=== PATIENT | female | born 1935 | race Caucasian/White ===

== ENCOUNTER 2016-06-22 17:39 | Inpatient (IN) | payer OTHER ==
[~2016-06-22] VITALS: Ht 157.5 cm; Wt 46.3 kg
--- NOTE | ~2016-06-22 | DSS ---
[facility] [place] [address] SHORT STAY SUMMARY Name: ERIN GUEVARA Room #: 412-P [facility] IN M.R.#: [id number] Admission: 06/23/16 Attend Phys: Iris Alva Discharge: 06/23/16 Date of : 39 Report #: [id number] THIS REPORT FOR: //name// CC: Jack Curran DATE OF SERVICE: 06/23/2016 HISTORY OF PRESENT ILLNESS: The patient was being admitted electively by Dr. Curran for evaluation of confusion. I met the patient in the room. After discussing her situation within 5 minutes, she left against medical advice. She was neither formally admitted to the hospital for evaluation. <ELECTRONICALLY SIGNED> By: Bowen Hill MD 06/29/16 [id number] Bowen Hill MD /nt
[2016-06-23] MEDS ORDERED: NORVASC2.5 MG PO (12:08)
[2016-06-23] MEDS ORDERED: LEVOTHYROXIN0.075 MG PO (12:09)
[2016-06-23] MEDS ORDERED: ZANTAC 150MG T150 MG PO ×2 (12:10→12:11)
[2016-06-23] MEDS ORDERED: VALIUM2 MG PO (12:12)
[2016-06-23] MEDS ORDERED: NITROGLYCERIN0.4 MG SUBLING (12:13)
[2016-06-23] MEDS ORDERED: GAS-X180 MG PO (12:25)
[2016-06-23] MEDS ORDERED: PHAZYME250 MG PO (12:26)
== END 2016-06-23 13:40 | disposition left against medical advice (07) | DRG 948 ==
LOC: 5S 17:39 → 4N 06-23 11:15
DX: R41.0 Disorientation, unspecified (principal); Z53.21 Procedure and treatment not carried out due to patient leaving prior to being seen by health care provider
CPT/HCPCS: 10790

== ENCOUNTER 2017-12-12 14:25 | Inpatient (IN) | payer OTHER ==
[~2017-12-12] VITALS: Ht 157.5 cm; Wt 47.8 kg
--- NOTE | ~2017-12-12 | D ---
[facility] [place] [address] DISCHARGE SUMMARY Name: ERIN GUEVARA Room #: 419-P [facility] IN M.R.#: [id number] Admission: 12/12/17 Attend Phys: Iris Alva Discharge: 12/13/17 Date of : 39 Report #: [id number] THIS REPORT FOR: //name// CC: Jack Curran DATE OF SERVICE: 12/13/2017 FINAL DIAGNOSES: 1. Chronic abdominal pain. 2. Chronic anxiety. HOSPITAL COURSE: The patient was admitted electively for evaluation of abdominal pain. She had previously undergone extensive workup both at [facility] and [facility] for GI symptoms without pertinent findings. Our GI service assessed her. There was also concern of some underlying anxiety or mental health issues contributing to her that were posing problems with her functional level on a day-to-day basis. Dr. Polo was able to assess her and recommended Remeron at bedtime. Unfortunately, before full treatment plan could be put together for her, she left against medical advice. <ELECTRONICALLY SIGNED> By: Bowen Hill MD 12/15/17 0906 [id number] Bowen Hill MD /nt
--- NOTE | ~2017-12-12 | H ---
[facility] [place] [address] HISTORY AND PHYSICAL Name: ERIN GUEVARA Room #: 419-P ADM IN M.R.#: [id number] Admission: 12/12/17 Attend Phys: Iris Alva Discharge: Date of : 39 Report #: [id number] THIS REPORT FOR: //name// CC: Jack Curran DATE OF SERVICE: 12/12/2017 CHIEF COMPLAINT: Abdominal pain. HISTORY OF PRESENT ILLNESS: The patient is an 82-year-old female who was admitted from the office for evaluation of persistent abdominal pain. She complains of a fall and burning pain in her mid upper abdomen, generally associated with food intake. She reports a very strict diet that is limited to certain food groups and she avoids many things because she says these foods precipitate the pain, specifically any spicy type foods or sounds to be dairy products give her significant difficulty. She describes sort of a burning sensation in the esophagus and epigastric area with a full or bloated type feeling and crampy pain. She also describes symptoms of constipation. She reports a 40-pound weight loss in the last 8 years, but really cannot specify how much she may have lost in this calendar year. Through the office notes in the last month or 2, it appears she is down 3 or 4 pounds. She is very anxious at times and developed some type of panic attacks where she often will present to the Emergency Room or seek medical treatment. After discussing with Dr. Curran and reviewing the office notes, it appears she has presented to the Emergency Room either at [facility] or [facility] almost on a daily basis for the last several months. The office has received records from ER trips on multiple occasions many days in a row. She has been hospitalized, I believe in both facilities and she describes extensive GI workup including EGD, gastric emptying time and what sounds to be a CT. She says no definitive diagnosis has been made. I am attempting to gather some of those records from the office. PAST MEDICAL HISTORY: Hypertension, she treats only for readings above 150; hypothyroidism; chronic abdominal pain; chronic anxiety. She has had several brief admissions here where she left AMA before receiving care or evaluation. PAST SURGICAL HISTORY: Unknown. FAMILY HISTORY: Noncontributory. SOCIAL HISTORY: She lives alone, but has family friends. Denies chronic alcohol or tobacco use. ALLERGIES: Multiple, see list. [facility] [address] [place] [address] HISTORY AND PHYSICAL Name: ERIN GUEVARA Room #: 419-P [facility] IN M.R.#: [id number] Admission: 12/12/17 Attend Phys: Iris Alva Discharge: Date of : 39 Report #: [id number] MEDICATIONS: Amlodipine for systolic above 150, Zantac 4 times a day, Valium 1 mg twice a day. REVIEW OF SYSTEMS: Other than the abdominal symptoms, she complains of neck pain, anxiety and panic attacks. No chest pain, shortness of breath, nausea, vomiting, diarrhea, dysuria, myalgias, syncope or fall. PHYSICAL EXAMINATION: VITAL SIGNS: Temperature 34.9, pulse 58, respiration 19, blood pressure 147/91, O2 sat 100% on room air. GENERAL: She is awake and alert, in no distress. HEAD AND NECK: Unremarkable. LUNGS: Clear. HEART: Regular. ABDOMEN: Soft, normoactive bowel sounds, no palpable masses. No rebound or guarding. EXTREMITIES: No cyanosis, clubbing or edema. NEUROLOGIC: Cranial nerves intact. Speech is fluent. Motor strength intact. PSYCHIATRIC: She is calm and alert. She seems to focus on certain foods that give her GI issues and her use of Zantac and Valium to control her symptoms. ASSESSMENT: 1. Chronic abdominal pain. 2. Chronic anxiety. 3. Unexplained weight loss. PLAN: Basic lab and x-ray will be obtained. At this point, I have asked the office to forward any records involving GI studies to be sent to the hospital, so we can review along with the GI service before involving any further invasive studies. She also needs a psychiatric evaluation to see if any of her anxiety is feeding into her physical complaints or could there be an underlying mental illness that has not been fully diagnosed or treated at this point that may be contributing to her anxiety, behavior and physical symptoms. Based on what studies may or may not have been done in the past, a consideration could be given to a trial of Lactaid or even pancreatic enzyme I suppose or consideration of CT angiogram of the abdomen to rule out any ischemic issue, although her symptoms do not totally fit that picture at this point. I will await further records and assessment in the coming day. <ELECTRONICALLY SIGNED> By: Bowen Hill MD 12/13/17 [id number] Bowen Hill MD /nt
[~2017-12-12 14:25] MED LIST: GAS-X180 MG PO; LEVOTHYROXIN0.075 MG PO; NITROGLYCERIN0.4 MG SUBLING; NORVASC2.5 MG PO; PHAZYME250 MG PO; VALIUM2 MG PO; ZANTAC 150MG T150 MG PO
[2017-12-12 15:33] VITALS: BP 147/91
[2017-12-12 16:55] LABS: HEMATOCRIT 40.6 % (37.0-47.0); HEMOGLOBIN 14.2 gm/dL (12.0-15.0); MCH 32.1 pg (26.0-34.0); MCV 91.6 fL (80.0-100.0); RBC 4.43 mil/uL (4.20-5.00); WBC 5.3 thou/uL (4.0-11.0)
[2017-12-12 17:08] LABS: ALBUMIN 3.6 g/dL (3.4-5.0); CALCIUM 8.9 mg/dL (8.5-10.1); TOTAL BILIRUBIN 0.6 mg/dL (<0.1-1.0); TOTAL PROTEIN 7.2 g/dL (6.4-8.2)
[2017-12-12 20:32] VITALS: BP 158/92
[2017-12-13 01:33] LABS: URINE BILIRUBIN NEGATIVE (Negative); URINE BLOOD TRACE (Negative); URINE CLARITY CLEAR; URINE COLOR YELLOW; URINE GLUCOSE-RANDOM* NEGATIVE (Negative); URINE KETONES NEGATIVE (Negative); URINE LEUKOCYTES-REFLEX NEGATIVE (Negative); URINE NITRITE-REFLEX NEGATIVE (Negative); URINE PROTEIN (DIPSTICK) NEGATIVE (Negative); URINE SPECIFIC GRAVITY <= 1.005 (1.005-1.035); URINE UROBILINOGEN 0.2 E.U./dl (0.2-1.0)
[2017-12-13 04:01] VITALS: BP 144/78
[2017-12-13 06:26] LABS: ALBUMIN 3.4 g/dL (3.4-5.0); DIRECT BILIRUBIN 0.2 mg/dL (<0.1-0.3); TOTAL BILIRUBIN 0.7 mg/dL (<0.1-1.0); TOTAL PROTEIN 6.7 g/dL (6.4-8.2)
[2017-12-13 07:55] VITALS: BP 161/92
== END 2017-12-13 14:14 | disposition left against medical advice (07) | DRG 392 ==
LOC: 4E 14:25
PROVIDERS: Internal Medicine Geriatric Medicine; Nurse Practitioner
DX: R10.9 Unspecified abdominal pain (principal); Z68.1 Body mass index [BMI] 19.9 or less, adult; F41.9 Anxiety disorder, unspecified; I10 Essential (primary) hypertension; E03.9 Hypothyroidism, unspecified; R63.4 Abnormal weight loss; K59.09 Other constipation; K57.90 Diverticulosis of intestine, part unspecified, without perforation or abscess without bleeding; Z53.21 Procedure and treatment not carried out due to patient leaving prior to being seen by health care provider; I25.10 Atherosclerotic heart disease of native coronary artery without angina pectoris; Z95.5 Presence of coronary angioplasty implant and graft; Z90.49 Acquired absence of other specified parts of digestive tract; Z79.899 Other long term (current) drug therapy
CPT/HCPCS: 10783